=== PATIENT | male | born 1975 | race Caucasian/White ===

== ENCOUNTER 2016-08-22 13:53 | Emergency (ER) | payer OTHER ==
[~2016-08-22] VITALS: Ht 180.3 cm; Wt 112.0 kg
[~2016-08-22 13:53] MED LIST: ANUSOL-HC CREAM30 GM RECTAL; LAMICTAL25 M1 PO; LIDOCREAM5 GM TP; ZOLOFT100 MG ORAL
--- NOTE | 2016-08-22 14:24 | Emergency Room Report ---
History of Present Illness General Chief Complaint: General Complaint Source: Patient Present Illness HPI Patient is a 40-year-old male who presented after having increased generalized weakness. Patient states he has prior history of anxiety and OCD. Patient had prior history of seizure disorder. He had a seizures x2 on Saturday. The patient stated that he had subsequently felt better. He reports urinating normally. Patient states he was seen in the ENT office yesterday and had a procedure to evaluate for sleep apnea. The patient had no complaints of fever or dysuria. He denied any chest pain.The patient denied any recent change in his medications. He reported having some dizziness. Allergies: Coded Allergies: PENICILLINS (Verified Allergy, Mild, rash, 03/29/13) Uncoded Allergies: betablockers (Allergy, Mild, dizziness, 03/29/13) Patient History Past Medical History: see triage record Reviewed Nursing Documentation: PMH: Agreed, PSxH: Agreed Nursing Documentation-PM Past Medical History: No History, Except For History Of Psychiatric Problem: Yes - Depression, anxiety, OCD, Hx Seizures: Yes Review of Systems All Other Systems: negative except mentioned in HPI Physical Exam Vital Signs Date Time Temp Pulse Resp B/P Pulse Ox O2 Delivery O2 Flow Rate FiO2 08/22/16 14:00 98.1 72 14 134/99 99 Room Air Sp02 EP Interpretation: reviewed, normal General Appearance: normal inspection, well appearing, no apparent distress, alert, GCS 15, non-toxic Head: atraumatic ENT: normal ENT inspection, hearing grossly normal, normal voice Neck: normal inspection, full range of motion, supple, no bony tend Respiratory: normal inspection, lungs clear, normal breath sounds, no respiratory distress, no retraction, no wheezing Cardiovascular #1: regular rate, rhythm, no edema Gastrointestinal: normal inspection, normal bowel sounds, non tender, soft, no guarding, no hernia Genitourinary: no CVA tenderness Musculoskeletal: normal inspection, back normal, normal range of motion Neurologic: normal inspection, alert, oriented x3, responsive, resident service coordinator III-XII nml as tested, motor strength/tone normal, speech normal Psychiatric: normal inspection, judgement/insight normal, mood/affect normal Skin: normal inspection, normal color, no rash Medical Decision Making Diagnostic Impression: Primary Impression: Generalized weakness Additional Impression: Seizure disorder ER Course The patient is a 40-year-old male who presented for generalized weakness. Patient presented for generalized weakness. Differential diagnosis included was not limited to anemia, urinary tract infection, electrolyte abnormality, hypothyroidism, myocardial infarction, myasthenia gravis, dehydration, among others. Patient's benign exam and does not appear to require any further imaging or laboratory testing at this time. The patient was noted to have a history of seizure disorder.The patient feels may been reaction to the medication he was given for anesthetic. I attempted to contact the patient's physician who was unavailable. He reportedly takes Vimpat as well as Aptium ( Eslicarbazepine). Orthostatic vital signs were noted be negative.The patient is advised to follow up with primary care doctor in 1-2 days. Patient is advised to return if any worsening condition or if any changes in status that are concerning. Last Vital Signs Date Time Temp Pulse Resp B/P Pulse Ox O2 Delivery O2 Flow Rate FiO2 08/22/16 14:00 98.1 72 14 134/99 99 Room Air Status: improved Disposition: HOME, SELF-CARE Condition: Stable Atif Moreno Aug 22, 2016 14:24
[2016-08-22 14:33] VITALS: BP 147/98
[2016-08-22 14:36] VITALS: BP 138/97
[2016-08-22 14:37] VITALS: BP 137/82
[2016-08-22 14:38] VITALS: BP 147/98
[2016-08-22 14:55] VITALS: BP 147/98
--- NOTE | 2016-08-25 03:10 | Cardiology Report ---
APPROVED REPORT EKG Measurement Heart [id number] Normal sinus rhythm Normal ECG
== END 2016-08-22 15:01 | disposition home or self-care (01) ==
LOC: EMR 14:25
DX: R53.1 Weakness (principal); G40.909 Epilepsy, unspecified, not intractable, without status epilepticus; F32.9 Major depressive disorder, single episode, unspecified; F41.9 Anxiety disorder, unspecified; F42.9 Obsessive-compulsive disorder, unspecified; Z88.0 Allergy status to penicillin
CPT/HCPCS: 82962; 93005; 99281

== ENCOUNTER 2017-03-13 23:41 | Emergency (ER) | payer OTHER ==
[~2017-03-13] VITALS: Ht 182.9 cm; Wt 111.1 kg
[2017-03-14] MEDS ORDERED: LORazepam 0.5mg tab ORAL ONE (00:45)
[2017-03-14 00:47] VITALS: BP 132/84
--- NOTE | 2017-03-14 01:15 | Emergency Room Report ---
History of Present Illness General Chief Complaint: General Complaint Source: Patient Present Illness HPI The patient's undergoing a lot of stress at this time. He feels that his left hand is been out of control. He's had partial complex seizures in the past. He takes vimpat and a second medication for the seizures. He is certain he has not missed doses. The numbness is worsened with stress. He denies headaches. His neurologist allows him to drive. He had seizures last week. His neurologist knows about this. L handed. 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 This provides the stress. Not suicidal. On zoloft. Not taking medication for the anxiety. No fevers, NVD, change vision. No recent trauma. Allergies: Coded Allergies: PENICILLINS (Verified Allergy, Mild, rash, 03/29/13) Uncoded Allergies: betablockers (Allergy, Mild, dizziness, 03/29/13) Patient History Past Medical History: see triage record Social History: Denies: smoking, alcohol use, drug use Social History Narrative completing PHD in [employer] Reviewed Nursing Documentation: PMH: Agreed, PSxH: Agreed Nursing Documentation-PMH Hx Seizures: Yes Review of Systems All Other Systems: negative except mentioned in HPI Physical Exam Vital Signs Date Time Temp Pulse Resp B/P (MAP) Pulse Ox O2 Delivery O2 Flow Rate FiO2 03/14/17 00:38 97.9 68 16 132/84 96 Room Air Sp02 EP Interpretation: reviewed, normal General Appearance: well appearing, no apparent distress, GCS 15 Head: normocephalic Eyes: bilateral eye normal inspection, bilateral eye PERRL, bilateral eye EOMI ENT: moist mucus membranes - no macerations Neck: full range of motion, supple Respiratory: lungs clear, normal breath sounds Cardiovascular #1: regular rate, rhythm Cardiovascular #2: 2+ radial (R) Gastrointestinal: normal inspection, normal bowel sounds, non tender, no mass, non-distended Musculoskeletal: back normal, gait/station normal, normal range of motion Neurologic: alert, oriented x3, motor strength/tone normal, DTRs symmetric, sensory intact - subjective difference L side of body, cerebellar normal, normal gait, speech normal Psychiatric: anxious Reflexes: 2+ knee (R), 2+ knee (L) Skin: normal inspection, warm/dry Medical Decision Making Diagnostic Impression: Primary Impression: Paresthesias Additional Impressions: Anxiety Aura ER Course The patient presents with sensory changes and was left-hand. 7 history of partial complex seizures in the past. Differential includes noncompliance, electrolyte abnormality, exacerbation of underlying seizure disorder, anxiety amongst others. The patient be evaluated with labs. The patient be treated with Ativan. He claims that he is complaining with his medications. In addition to that he states is very anxious and stressed. Ct head is not indicated at this time. Lab results unremarkable. Patient improved with ativan. He is considering joining a support group through [facility]. Patient stable for outpatient observation and treatment. Laboratory Tests Test 03/14/17 00:55 03/14/17 01:55 Urine Color Pale yellow Urine Appearance Clear Urine pH 6 (4.5-8.0) Urine Specific [place] 1.020 (1.005-1.035) Urine Protein Negative (NEGATIVE) Urine Glucose (UA) Negative (NEGATIVE) Urine Ketones Negative (NEGATIVE) Urine Occult Blood Negative (NEGATIVE) Urine Nitrite Negative (NEGATIVE) Urine Bilirubin Negative (NEGATIVE) Urine Urobilinogen Normal MG/DL (0.0-1.0) Urine Leukocyte Esterase 1+ (NEGATIVE) H Urine RBC 0-2 /HPF (0 - 0) H Urine WBC 0-2 /HPF (0 - 0) Urine Squamous Epithelial Cells Few /LPF (NONE/OCC) Urine Bacteria Few /HPF (NONE) Urine Opiates Screen Negative (NEGATIVE) Urine Barbiturates Screen Negative (NEGATIVE) Phencyclidine (PCP) Screen Negative (NEGATIVE) Urine Amphetamines Screen Negative (NEGATIVE) Urine Benzodiazepines Screen Negative (NEGATIVE) Urine Cocaine Screen Negative (NEGATIVE) Urine Marijuana (THC) Screen Negative (NEGATIVE) White Blood Count 6.0 K/UL (4.8-10.8) Red Blood Count 4.47 M/UL (4.70-6.10) L Hemoglobin 13.6 G/DL (14.2-18.0) L Hematocrit 40.2 % (42.0-52.0) L Mean Corpuscular Volume 90 FL (80-99) Mean Corpuscular Hemoglobin 30.4 PG (27.0-31.0) Mean Corpuscular Hemoglobin Concent 33.8 G/DL (32.0-36.0) Red Cell Distribution Width 11.4 % (11.6-14.8) L Platelet Count 271 K/UL (150-450) Mean Platelet Volume 6.4 FL (6.5-10.1) L Neutrophils (%) (Auto) 60.2 % (45.0-75.0) Lymphocytes (%) (Auto) 25.5 % (20.0-45.0) Monocytes (%) (Auto) 8.4 % (1.0-10.0) Eosinophils (%) (Auto) 4.7 % (0.0-3.0) H Basophils (%) (Auto) 1.2 % (0.0-2.0) Sodium Level 142 mEQ/L (135-145) Potassium Level 3.7 mEQ/L (3.4-4.9) Chloride Level 103 mEQ/L (98-107) Carbon Dioxide Level 27 mEQ/L (20-30) Anion Gap 12 (5-15) Blood Urea Nitrogen 17 mg/dL (7-23) Creatinine 0.8 mg/dL (0.7-1.2) Estimate Glomerular Filtration Rate > 60 mL/min (>60) Glucose Level 92 mg/dL (74-106) Calcium Level 9.4 mg/dL (8.6-10.2) Total Bilirubin < 0.2 mg/dL (0.0-1.2) Aspartate Amino Transferase (AST) 16 U/L (5-40) Alanine Aminotransferase (ALT) 19 U/L (3-41) Alkaline Phosphatase 47 U/L (40-129) Total Creatine Kinase 169 U/L (38-174) Total Protein 6.9 g/dL (6.6-8.7) Albumin 4.2 g/dL (3.5-5.2) Globulin 2.7 g/dL Albumin/Globulin Ratio 1.5 (1.0-2.7) EKG Diagnostic Results Rate: bradycardiac Rhythm: NSR ST Segments: no acute changes - 1st degree avb Rhythm Strip Diag. Results EP Interpretation: yes Rhythm: no PVC's, no ectopy, other - Bradycardia Last Vital Signs Date Time Temp Pulse Resp B/P (MAP) Pulse Ox O2 Delivery O2 Flow Rate FiO2 03/14/17 05:26 97.9 68 18 128/81 96 Room Air 68 Status: improved Disposition: HOME, SELF-CARE Condition: Improved Scripts Lorazepam* (ATIVAN*) 0.5 Mg Tablet 0.5 MG ORAL THREE TIMES A DAY, #6 TAB Take less than 3 times a week. Prov: Maurice Melgar M.D. 03/14/17 Referrals: [facility],REFERRING (PCP) Maurice Melgar M.D. Mar 14, 2017 01:15
[2017-03-14 01:57] LABS: APPEARANCE,URINE CLEAR; KETONES,URINE NEGATIVE (NEGATIVE); LEUKOCYTE ESTERASE ,URINE 1+ (NEGATIVE); NITRITE,URINE NEGATIVE (NEGATIVE); PH,URINE 6 (4.5-8.0); PROTEIN,URINE NEGATIVE (NEGATIVE); UROBILINOGEN,URINE NORMAL MG/DL (0.0-1.0)
[2017-03-14 02:08] LABS: BACTERIA,URINE FEW /HPF; RBC,URINE 0-2 /HPF (0 - 0); SQUAMOUS EPITHELIAL CELL,UR FEW /LPF (NONE/OCC); WBC,URINE 0-2 /HPF (0 - 0)
[2017-03-14 02:08] LABS: BASOPHILS % (AUTO) 1.2 % (0.0-2.0); EOSINOPHILS % (AUTO) 4.7 % (0.0-3.0); LYMPHOCYTES % (AUTO) 25.5 % (20.0-45.0); MEAN CORPUSCULAR HEMOGLOBIN 30.4 PG (27.0-31.0); MEAN CORPUSCULAR HGB CONC 33.8 G/DL (32.0-36.0); MEAN CORPUSCULAR VOLUME 90 FL (80-99); MEAN PLATELET VOLUME 6.4 FL (6.5-10.1); MONOCYTES % (AUTO) 8.4 % (1.0-10.0); NEUTROPHILS % (AUTO) 60.2 % (45.0-75.0); PLATELET COUNT 271 K/UL (150-450); RED BLOOD COUNT 4.47 M/UL (4.70-6.10); RED CELL DISTRIBUTION WIDTH 11.4 % (11.6-14.8)
[2017-03-14 02:26] LABS: ALANINE AMINOTRANSFERASE 19 U/L (3-41); ALBUMIN/GLOBULIN RATIO 1.5 (1.0-2.7); ANION GAP 12 (5-15); ASPARTATE AMINO TRANSFERASE 16 U/L (5-40); CALCIUM 9.4 mg/dL (8.6-10.2); CARBON DIOXIDE 27 mEQ/L (20-30); CHLORIDE 103 mEQ/L (98-107); CREATININE 0.8 mg/dL (0.7-1.2); GLOMERULAR FILTRATION RATE > 60 mL/min (>60); HEMOLYSIS 4; POTASSIUM 3.7 mEQ/L (3.4-4.9); SODIUM 142 mEQ/L (135-145); TOTAL PROTEIN 6.9 g/dL (6.6-8.7)
[2017-03-14] MEDS ORDERED: ATIVAN0.5 MG ORAL (05:15)
[2017-03-14 05:19] VITALS: BP 128/81
[2017-03-14 05:26] VITALS: BP 128/81
--- NOTE | 2017-03-17 16:00 | Cardiology Report ---
APPROVED REPORT EKG Measurement Heart [id number] Sinus bradycardia with 1st degree AV block Otherwise normal ECG
== END 2017-03-14 05:27 | disposition home or self-care (01) ==
LOC: EMR 03-14 00:45
DX: R20.2 Paresthesia of skin (principal); F41.9 Anxiety disorder, unspecified; Z88.0 Allergy status to penicillin
CPT/HCPCS: 36415; 80053; 80300; 81003; 82550; 85025; 93005; 99284

== ENCOUNTER 2017-06-20 14:59 | Emergency (ER) | payer MEDICAID, OTHER ==
[~2017-06-20] VITALS: Ht 182.9 cm; Wt 104.3 kg
[~2017-06-20 14:59] MED LIST changes: +ATIVAN0.5 MG ORAL
[2017-06-20 15:17] VITALS: BP 139/86
[2017-06-20] MEDS ORDERED: PREDNISONE20 MG ORAL (15:33)
[2017-06-20] MEDS ORDERED: DIPHENHYDRAMINE25 M1 ORAL (15:33)
[2017-06-20] MEDS ORDERED: CLINDAMYCIN HC300 MG ORAL (15:33)
[2017-06-20 15:40] VITALS: BP 139/86
--- NOTE | 2017-06-20 22:02 | Emergency Room Report ---
History of Present Illness General Chief Complaint: Allergic Reaction Source: Patient Present Illness HPI 41-year-old male presents ED for evaluation. Patient states that he has swelling to his right cheek. Started a few days ago. Denies any pain. Denies any fevers or chills. Patient states approximately 2 weeks ago he had noticed swelling to his glands under his left jaw. Was seen at a clinic and was prescribed azithromycin and Cipro. Patient states that he completed the azithromycin prescription and started the Cipro prescription but states that the swelling got progressively worse when he came to emergency room. Denies any throat swelling or tongue swelling. Denies any shortness of breath. States he has allergies to penicillin which cause a rash. No other aggravating or leading factors. Denies any other associated symptoms Allergies: Coded Allergies: PENICILLINS (Verified Allergy, Mild, rash, 03/29/13) Uncoded Allergies: betablockers (Allergy, Mild, dizziness, 03/29/13) Patient History Past Medical History: psych hx Past Surgical History: none Pertinent Family History: none Social History: Denies: smoking, alcohol use, drug use Immunizations: UTD Reviewed Nursing Documentation: PMH: Agreed, PSxH: Agreed Nursing Documentation-PMH Past Medical History: No History, Except For History Of Psychiatric Problem: Yes - ANXIETY Hx Seizures: Yes Review of Systems All Other Systems: negative except mentioned in HPI Physical Exam Vital Signs Date Time Temp Pulse Resp B/P (MAP) Pulse Ox O2 Delivery O2 Flow Rate FiO2 06/20/17 15:07 97.7 84 20 139/86 98 Room Air Sp02 EP Interpretation: reviewed, normal General Appearance: no apparent distress, alert, GCS 15, non-toxic Head: normocephalic Eyes: bilateral eye normal inspection, bilateral eye PERRL ENT: normal pharynx, TMs + canals normal, other - R cheek swelling. non fluctuant. Neck: full range of motion, supple/symm/no masses Respiratory: chest non-tender, lungs clear, normal breath sounds, speaking full sentences Cardiovascular #1: normal inspection Gastrointestinal: normal inspection Rectal: deferred Genitourinary: no CVA tenderness Musculoskeletal: normal inspection Neurologic: alert, oriented x3, responsive, motor strength/tone normal, sensory intact, speech normal Psychiatric: normal inspection Skin: normal inspection Lymphatic: normal inspection Medical Decision Making Diagnostic Impression: Primary Impression: Infection of parotid gland ER Course Hospital Course 41-year-old male presents ED with right cheek swelling Differential diagnoses include: Dental abscess, pharyngitis, allergic reaction Clinical course Patient placed on stretcher. After initial history, physical exam reveals a male in no acute distress. Bilateral TM unremarkable. Oropharynx is unremarkable. No lymphadenopathy. There is noticeable swelling of the right cheek. On palpation there is no fluctuance. No induration. Consistent with parotid gland infection Recommended patient discontinue the Cipro as I do not believe it provide adequate coverage. Will prescribe clindamycin. Diagnosis - infection of parotid gland Stable and discharged home with prescriptions for clindamycin, Benadryl, prednisone. Instructed to followup with PMD. return to ED if symptoms recur or worsen Last Vital Signs Date Time Temp Pulse Resp B/P (MAP) Pulse Ox O2 Delivery O2 Flow Rate FiO2 06/20/17 15:40 97.7 80 20 139/86 98 Room Air Status: improved Disposition: HOME, SELF-CARE Condition: Stable Scripts Prednisone* (PREDNISONE*) 20 Mg Tablet 40 MG ORAL DAILY, #10 TAB Prov: PATRICK KRISHNAMURTHY M.D. 06/20/17 Diphenhydramine Hcl* (DIPHENHYDRAMINE HCL*) 25 Mg Capsule 25 MG ORAL Q6H Y for Itching for 5 Days, #30 CAP 0 Refills Prov: PATRICK KRISHNAMURTHY M.D. 06/20/17 Clindamycin Hcl (CLINDAMYCIN HCL) 300 Mg Capsule 300 MG ORAL THREE TIMES A DAY, #21 CAP Prov: PATRICK KRISHNAMURTHY M.D. 06/20/17 Referrals: [facility]/,REFERRING (PCP) Patient Instructions: Parotitis, [id number] PATRICK KRISHNAMURTHY M.D. Jun 20, 2017 22:02
== END 2017-06-20 15:40 | disposition home or self-care (01) ==
LOC: EMR 15:40
DX: K11.20 Sialoadenitis, unspecified (principal); F41.9 Anxiety disorder, unspecified; Z88.0 Allergy status to penicillin
CPT/HCPCS: 99283